=== PATIENT | female | born 1945 | race Caucasian/White ===

== ENCOUNTER → 2017-07-06 | Outpatient (CLI) | payer MEDICARE | END | disposition home or self-care (01) | LOC: US 15:36 | DX: I10 Essential (primary) hypertension (principal); J44.9 Chronic obstructive pulmonary disease, unspecified; M17.12 Unilateral primary osteoarthritis, left knee; M79.89 Other specified soft tissue disorders; M77.8 Other enthesopathies, not elsewhere classified | CPT/HCPCS: 71046; 73560; 93971 ==

== ENCOUNTER → 2017-07-12 | Outpatient (CLI) | payer MEDICARE, OTHER | END | disposition home or self-care (01) | LOC: RAD 14:06 | DX: M54.41 Lumbago with sciatica, right side (principal); M51.36 Other intervertebral disc degeneration, lumbar region; I70.0 Atherosclerosis of aorta; G89.29 Other chronic pain | CPT/HCPCS: 72100 ==

== ENCOUNTER → 2017-08-04 | Outpatient (CLI) | payer MEDICARE, MEDICAID | END | disposition home or self-care (01) | LOC: KCIC MRI 12:32 | DX: M48.061 Spinal stenosis, lumbar region without neurogenic claudication (principal); M12.88 Other specific arthropathies, not elsewhere classified, other specified site | CPT/HCPCS: 72148 ==

== ENCOUNTER → 2018-01-08 | Outpatient (CLI) | payer MEDICARE, MEDICAID ==
--- NOTE | 2018-01-08 17:34 | KCIC ---
Esophagram 01/08/2018 CLINICAL HISTORY: Dysphagia. Throat discomfort. TECHNIQUE: An esophagram was performed under fluoroscopic control. Six digital spot radiographs were obtained. The total fluoroscopic time is 2 minutes 51 seconds. FINDINGS: The swallowing mechanism is within normal limits. No laryngeal penetration or tracheal aspiration is seen. The mucosal pattern of the hypopharynx, esophagus and GE junction is within normal limits. Tertiary contractions of the esophagus are seen consistent with mild to moderate esophageal dysmotility. There is a small sliding hiatal hernia. No significant gastroesophageal reflux is seen. IMPRESSION: 1. Mild to moderate esophageal dysmotility. 2. Small sliding hiatal hernia. Electronically signed by: Marino Guadarrama MD (01/08/2018 5:31 PM) [email or web address]
--- NOTE | 2018-01-08 18:02 | KCIC ---
Thyroid ultrasound 01/08/2018 CLINICAL HISTORY: Throat congestion and throat discomfort. TECHNIQUE: A real-time ultrasound examination of the thyroid gland was performed. Multiple images were obtained. FINDINGS: The thyroid gland is mildly enlarged. The right lobe of the thyroid gland measures 5.3 x 1.5 x 1.5 cm in longitudinal, transverse and AP dimensions. The left lobe of thyroid gland measures 4.6 x 1.6 x 1.3 cm in size. The isthmus measures 4 mm in thickness. Multiple hypoechoic and complex nodules are seen scattered throughout both lobes of the thyroid gland, right greater than left. These measure 3 mm to 1.2 cm in size. These findings are consistent with a multinodular goiter. IMPRESSION: Findings consistent with a multinodular goiter. Electronically signed by: Marino Guadarrama MD (01/08/2018 5:59 PM) [email or web address]
== END | disposition home or self-care (01) ==
LOC: KCIC US 12:53
PROVIDERS: ATTEND Nurse Practitioner Family
DX: K22.4 Dyskinesia of esophagus (principal); K44.9 Diaphragmatic hernia without obstruction or gangrene; E04.2 Nontoxic multinodular goiter; I10 Essential (primary) hypertension; M17.12 Unilateral primary osteoarthritis, left knee; J44.9 Chronic obstructive pulmonary disease, unspecified
CPT/HCPCS: 74220; 76536

== ENCOUNTER → 2020-12-30 | Outpatient (CLI) | payer MEDICARE, MEDICAID ==
--- NOTE | 2020-12-30 12:57 | RAD ---
EXAM: Thyroid sonogram. HISTORY: Difficulty swallowing. TECHNIQUE: Sonographic imaging of the thyroid was performed. COMPARISON: 01/08/2018. FINDINGS: The right thyroid lobe measures 6.1 x 1.7 x 2.0 cm. The left thyroid lobe measures 4.6 x 1. 6 x 1.0 cm. The thyroid isthmus measures 2.9 mm. There are multiple right thyroid nodules and colloid cysts. The largest nodule on the right is predom inantly hypoechoic with internal echogenic foci within the lower pole measuring 9 x 8 x 7 mm. The sec ond largest lesion on the right is a colloid cyst measuring 7 mm within the mid zone. The largest les ion within the right thyroid lobe is probably hypoechoic with internal echogenic foci within the uppe r mid zone measuring 6 x 5 x 5 mm. There are few additional less than 5 mm hypoechoic nodules an cyst s within the right thyroid lobe. There are multiple small left thyroid nodules and colloid cysts. The largest lesion on the left is a colloid cyst measuring 6 mm. The remainder of the lesions are less than 5 mm in size. IMPRESSION: Multiple bilateral thyroid nodules and colloid cysts. The largest solid nodules are seen on the right measuring 9 mm and 6 mm. Given the presence of punctate internal echogenic foci associat ed with these nodules, these nodules are categorized as TI-RADS 5 lesions. However, these lesions are decreased in size compared to a prior sonogram dated 01/08/2018, favoring benignity. Sonographic foll ow-up is typically recommended for Category 5 lesions of this size. Electronically signed by: Conchita Ellis MD (12/30/2020 12:55 PM) [id number]
== END ==
LOC: US 12:06
PROVIDERS: ATTEND Nurse Practitioner
DX: E04.2 Nontoxic multinodular goiter (principal)
CPT/HCPCS: 76536